=== PATIENT | female | born 1965 | race Two or more races ===

== ENCOUNTER 2024-08-29 06:22 | Emergency (ER) | payer MEDICAID, SELFPAY ==
[2024-08-29 06:33] VITALS: BP 135/80; PULSE 79; RESP 16; TEMP 36.4; O2SAT 96
--- NOTE | 2024-08-29 06:47 | XR_ITS ---
Examination: CT brain head without contrast. 2-D sagittal coronal reconstructions Date and time of exam:August 29, 2024 at 0721 hrs. Indications: Onset headache right-sided body numbness today CTDI: vol (mGy):43.4 DLP: (mGycm):829 Technique: Multiple CT axial sections of the brain have been obtained, 5 mm slice thickness. Contrast has not been administered. 2-D sagittal, coronal reconstructions have been obtained Low dose protocols were performed. One or more of the following dose reduction techniques were used; automated exposure control, adjustment of the mA and/or KV according to patient size, use of iterative reconstruction technique. Findings: No significant ventricular enlargement. Smaller encephalomalacia right posterior parietal lobe Intra-axial or extra-axial hemorrhage density is not seen. No mass effect or midline shift Basal cisterns are not remarkable. Fourth ventricle is midline. Cranial vault intact. Impression: Negative for acute hemorrhage, mass effect or midline shift As clinically warranted, brain MRI follow-up would best assess for demyelinating disease, acute ischemic change
--- NOTE | 2024-08-29 06:47 | EDRME_ITS ---
Rapid Medical Screening Exam RME Arrival date/time: 08/29/24 06:22 This is a 58-year-old female who presents to the emergency department with complaints of generalized headache she does report that her pain radiates to her. right side of her head frontal area. I have greeted and performed a focused initial a ssessment of this patient. Initial appropriate labs ordered at this time. A comprehensive ED assessment and evaluation of the patient and analysis of all test and completion of medical decision making process will be conducted by additional ED provider. Chief Complaint: Headache Time Seen by Provider: 08/29/24 06:31 Vital signs: Vital Signs Temperature 97.6 F 08/29/24 06:33 Pulse Rate 79 08/29/24 06:33 Respiratory Rate 16 08/29/24 06:33 Blood Pressure 135/80 H 08/29/24 06:33 Pulse Oximetry (%) 96 08/29/24 06:33 Oxygen Delivery Method Room Air 08/29/24 06:33
[2024-08-29] MEDS: METOCLOPRAMIDE 5 MG TABLET 10 MG PO (07:53)
[2024-08-29] MEDS: KETOROLAC INJ 60 MG/2 ML VIAL 30 MG IM (07:54)
[2024-08-29] MEDS: DiphenhydrAMINE INJ 50 MG/ML VIAL 25 MG IM (07:55)
--- NOTE | 2024-08-29 08:40 | PD.EDHA ---
ED Headache RME/HPI General Chief Complaint: Headache Stated Complaint: HEADACHE Time Seen by Provider: 08/29/24 06:31 Source: patient Arrival date/time: 08/29/24 06:22 58-year-old female presented to the emergency department with complaints of posterior head type headache, Radiating to bilateral shoulders. Patient did not attempt any interventions or take any OTC medications prior to ED visit. Patient denies any other associated symptoms or aggravating factors. No modifying factors, no radiation, no migration. Denies any fever, chills no rigors no meningeal signs. RME / HPI RME / HPI Narrative: 08/29/24 06:22 This is a 58-year-old female who presents to the emergency department with complaints of generalized headache she does report that her pain radiates to her. right side of her head frontal area. I have greeted and performed a focused initial assessment of this patient. Initial appropriate labs ordered at this time. A comprehensive ED assessment and evaluation of the patient and analysis of all test and completion of medical decision making process will be conducted by additional ED provider. Related Data Previous Rx's ?Medication ?Instructions ?Recorded ibuprofen 600 mg tablet 600 mg PO Q6H #30 tabs 07/11/20 Allergies Allergy/AdvReac Type Severity Reaction Status Date / Time No Known Allergies Allergy Verified 07/11/20 14:15 Review of Systems Review of Systems Systems Reviewed: All systems reviewed, normal except as documented Narrative Review of Systems: Gen: No fever, no chills, no weight loss EYES: No discharge, no visual changes, no pain HEENT: No ear pain, no congestion, no sore throat PULM: No shortness of breath, no cough, no congestion CV: No chest pain, no dyspnea on exertion, no palpitations GI: No nausea, no vomiting, no diarrhea, no pain, no constipation : No frequency, no urgency,? no dysuria Musc/skel: No joint pain, no back pain Skin: No rash? Psyc: No hallucinations, no depression Heme/Lymph: No easy bleeding or bruising tendencies Neuro: No weakness, +headache ED Exam Narrative Physical exam: General: Sittiing in Exam table in no acute distress, answering questions appropriately HENT: normocephalic, atraumatic, EOMI, PERRLA, moist mucous membranes, + mild paraspinal tenderness cervical. Chest: chest wall is nontender Cardiac: regular rate and rhythm, normal S1 and S2, no murmurs, rubs, or gallops, capillary refill ?2 seconds Pulmonary: clear to auscultation bilaterally, no wheezing, crackles, or rhonchi Abdominal: active bowel sounds, soft, nontender, nondistended Neuro: A&OX3, CN II-XII intact, sensation grossly intact bilaterally in UE and LE. Skin: no rashes, no ecchymosis Ext: no lower extremity edema Course Quality Measures none Orders Category Date Time Status CT head/brain wo con Stat Exams 08/29/24 06:47 Completed DiphenhydrAMINE INJ [Benadryl Inj] Med 08/29/24 07:32 Discontinued 25 mg IM X1 ONE Ketorolac Inj [Toradol Inj] Med 08/29/24 07:33 Discontinued 30 mg IM X1 ONE Metoclopramide [Reglan] Med 08/29/24 07:32 Discontinued 10 mg PO X1 ONE Vital Signs Vital signs: Vital Signs Temperature 97.6 F 08/29/24 06:33 Pulse Rate 79 08/29/24 06:33 Respiratory Rate 16 08/29/24 06:33 Blood Pressure 135/80 H 08/29/24 06:33 Pulse Oximetry (%) 96 08/29/24 06:33 Oxygen Delivery Method Room Air 08/29/24 06:33 Headache MDM Narrative MDM Narrative:: 58-year-old female evaluated in the emergency department for tensio type, headache. Medication given in ED alleviating her symptoms. CT imaging negative for any acute abnormality. There was no alteration in condition, vital signs stable. Advised can follow-up outpatient for the evaluation for migraines ER precautions given Patient data External records reviewed:: [facility] previous records Clinical information provided by:: patient Social determinants that could affect healthcare access:: none Patient has the following chronic illnesses:: none How is presenting disease/condition affected by chronic disease/condition?: no chronic disease Evaluation data The following diagnostics were reviewed and interpreted by me:: other (specify) Lab and/or radiology exams considered but not ordered:: none Interpretation Summary: Examination: CT brain head without contrast. 2-D sagittal coronal reconstructions Date and time of exam:August 29, 2024 at 0721 hrs. Indications: Onset headache right-sided body numbness today CTDI: vol (mGy):43.4 DLP: (mGycm):829 Technique: Multiple CT axial sections of the brain have been obtained, 5 mm slice thickness. Contrast has not been administered. 2-D sagittal, coronal reconstructions have been obtained Low dose protocols were performed. One or more of the following dose reduction techniques were used; automated exposure control, adjustment of the mA and/or KV according to patient size, use of iterative reconstruction technique. Findings: No significant ventricular enlargement. Smaller encephalomalacia right posterior parietal lobe Intra-axial or extra-axial hemorrhage density is not seen. No mass effect or midline shift Basal cisterns are not remarkable. Fourth ventricle is midline. Cranial vault intact. Impression: Negative for acute hemorrhage, mass effect or midline shift As clinically warranted, brain MRI follow-up would best assess for demyelinating disease, acute ischemic change Medications / Prescriptions Medications or Prescriptions considered but not ordered:: none Medication administrations:: Medication Administration History Discontinued Medications Diphenhydramine HCl (Diphenhydramine Inj 50 Mg/Ml Vial) 25 mg IM X1 ONE Stop: 08/29/24 07:33 Last Admin: 08/29/24 07:55 Dose: 25 mg Documented By: ED Ketorolac Tromethamine (Ketorolac Inj 60 Mg/2 Ml Vial) 30 mg IM X1 ONE Stop: 08/29/24 07:34 Last Admin: 08/29/24 07:54 Dose: 30 mg Documented By: ED Metoclopramide HCl (Metoclopramide 5 Mg Tablet) 10 mg PO X1 ONE Stop: 08/29/24 07:33 Last Admin: 08/29/24 07:53 Dose: 10 mg Documented By: ED All Medications administered and effective Consultations Consultation(s) initiated? (list below): No Diagnosis Differential diagnosis headache: migraine, tension headache, subarachnoid hemorrhage, headache and sinusitis Most likely diagnosis given after review of the tests above:: Tension Headache Admission Indicated Admission indicated?: not indicated Admission Request Was there a request for admission?: No Disposition Plan Disposition Plan: Discharge Discharge Attestation Discharge Attestation: The patient and all family members were given an opportunity to ask questions and understood the discharge instructions. Discharge instructions specifically effects, indications for sooner follow up or return to the emergency department, and the expected course of current diagnosis. Patient condition: Stable Discharge Plan Plan Patient Disposition: HOME (Self Care) Patient condition on transfer: Stable Prescriptions/Referrals Prescriptions/Med Rec: No Action ibuprofen 600 mg tablet 600 mg PO Q6H Qty: 30 0RF Referrals: Jeff Christopher MD [Primary Care Provider] - In 1 week Problem List Clinical Impression: Tension headache Patient/Caregiver Discharge Instructions Discharge Activity: activity as tolerated Education Materials: ED Headache, Tension Additional Instructions: Es muy importante que establezca atenci?n en alon cl?shelly cercana. Hoy lo tratamos por dolor de edel tensional. Intente beber muchos l?quidos; puede alcon ibuprofeno sin receta. Necesitar? alon visita de seguimiento con bland m?dico de atenci?n primaria en 2 a 3 d?as para recibir atenci?n de seguimiento. Regrese al departamento de emergencias si los s?ntomas empeoran o si cambia bland condici?n. is very important that you establish care nearby clinic. We treated you for tension headache today. Please attempt to drink plenty of fluids, can take [id number] ibuprofen. You will need to follow-up with your primary doctor in 2 to 3 days for follow-up care. Return to the emergency department this any worsening symptoms or change in condition. Print Language: Barbadian Stand Alone Forms: Manuela Award Info., Patient Portal Info Letter PA/IVONE Supervising Physician CONY/IVONE Supervising Physician: Dr Lock
== END 2024-08-29 11:24 | disposition home or self-care (01) ==
PROVIDERS: Emergency Provider Emergency Medicine; PCP Family Medicine
DX: G44.209 Tension-type headache, unspecified, not intractable (principal)
CPT/HCPCS: 70450; 96372; 99284; J1200; J1885; A9270